=== PATIENT | female | born 1965 | race Caucasian/White ===

== ENCOUNTER → 2016-05-01 | Day surgery (SDC) | payer OTHER ==
[~2016-05-01] VITALS: Ht 165.1 cm; Wt 93.9 kg
[~2016-05-01] MED LIST: ACETAMINOPHEN 650 MG SUPP As Ordered ONE; ACETAMINOPHEN 650 MG SUPP PR ONE; DESFLURANE 240 ML INHALANT As Ordered ONE; HYDROmorphone HCL 1 MG/ML SYRINGE (J1170) IV PRN; IBUPROFEN 800 MG TAB PO SCH; KETOROLAC 60 MG/2 ML VIAL (J1885) As Ordered ONE; LEVO25TA5 PO; LR 1,000 ML IV SCH; METOCLOPRAMIDE INJ 10MG/2ML VIAL (J2765) As Ordered ONE; MIDAZOLAM INJ 2 MG/2 ML VIAL (J2250) As Ordered ONE; MULT1TAB16 PO; NEXI20GR PO; ONDANSETRON 4MG/2ML VIAL (J2405) As Ordered ONE; ONDANSETRON 4MG/2ML VIAL (J2405) IV PRN; PERCOCET 5MG/325MG TAB PO PRN; PROPOFOL 200 MG/20 ML VIAL As Ordered ONE; TEGR200T PO; VITA-112 PO; dexameTHASONE 4 MG/ML 1ML VIAL (J1100) As Ordered ONE; fentaNYL 100 MCG/2 ML INJECTION (J3010) As Ordered ONE; fentaNYL 100 MCG/2 ML INJECTION (J3010) IV PRN
[2016-05-01 09:43] LABS: CONTROL LINE UCG INT CTR LINE PRESENT
[2016-05-01 09:43] LABS: MEAN CORPUSCULAR HEMOGLOBIN 30.9 pg (27.0-33.0); MEAN CORPUSCULAR HGB CONC 33.4 g/dl (32.0-36.5); MEAN CORPUSCULAR VOLUME 92.8 fl (80.0-96.0); WHITE BLOOD COUNT 5.7 K/mm3 (4.0-10.0)
[2016-05-01 12:15] VITALS: BP 134/80
--- NOTE | 2016-05-01 14:37 | RO ---
DATE OF PROCEDURE: 05/01/2016 Kandy is a 50-year-old female with a history of menometrorrhagia and thickened endometrium on ultrasound. After counseling, a decision was made for dilatation and curettage, hysteroscopy. PREOPERATIVE DIAGNOSES: 1. Menometrorrhagia. 2. Thickened endometrium. POSTOPERATIVE DIAGNOSES: 1. Menometrorrhagia. 2. Thickened endometrium. PROCEDURE: 1. Dilatation and curettage. 2. Hysteroscopy. ANESTHESIA: General. SURGEON: Dr. Castillo. MUSIC EDUCATION ADJUNCT PROFESSOR: COMPLICATIONS: None. ESTIMATED BLOOD LOSS: Less than 10 mL. SPECIMEN SENT TO THE LAB: Endometrial curetting. FINDINGS: Normal appearing endometrial cavity on hysteroscopy. DESCRIPTION OF PROCEDURE: After obtaining informed consent, the patient was taken to the operating room where general anesthetic was found to be adequate. She was then draped and prepped usual sterile fashion in the dorsal lithotomy position. At this point, a straight catheter in the bladder was performed for approximately 100 mL of clear urine. We then placed a weighted speculum in the posterior fornix of the vagina. Using a Winston retractor, the anterior lip of the cervix and then grasped with a single-tooth tenaculum. The uterus was sound to approximately 7 cm in size. The cervix was serially dilated. The hysteroscope was inserted with the above-noted findings. At this point, the hysteroscope was removed and a sharp curettage of the endometrial lining was done and the tissues were sent to pathology for final diagnosis. Good hemostasis noted. The patient tolerated the procedure well. She was then transferred to recovery room in stable condition.
== END | disposition home or self-care (01) ==
LOC: M SDC 09:00
PROVIDERS: ATTEND Obstetrics & Gynecology
DX: N92.0 Excessive and frequent menstruation with regular cycle (principal); N85.00 Endometrial hyperplasia, unspecified; E03.9 Hypothyroidism, unspecified; K21.9 Gastro-esophageal reflux disease without esophagitis; Z79.899 Other long term (current) drug therapy
CPT/HCPCS: 36415; 58558; 84703; 85027; 86850; 86900; 86901; 88305; J1100; J1885; J2250; J2405; J2765; J3010